=== PATIENT | female | born 1950 | race Caucasian/White ===

== ENCOUNTER → 2016-10-07 | Outpatient (REF) | payer OTHER ==
[~2016-10-07] MED LIST: ACET500C PO; ALBU17IN INH; AMLO25TA PO; ATOR1TAB19 PO; DRAM25TA3 PO; FURO1TAB15 PO; KLOR1TAB69 PO; LISI-542 PO; MELO7.5S PO; METF1000 PO; METO-207 PO; NEUR300C PO; OMEP40CA2 PO
== END ==
LOC: M LAB REF 12:44
PROVIDERS: ATTEND Internal Medicine
DX: N39.0 Urinary tract infection, site not specified (principal); J06.9 Acute upper respiratory infection, unspecified

== ENCOUNTER → 2018-05-03 | Outpatient (REF) | payer MEDICARE ==
[2018-05-04 11:21] LABS: CARCINOEMBRYONIC ANTIGEN 1.3 NG/ML (<2.5)
== END ==
LOC: M LAB REF 13:55
DX: C18.2 Malignant neoplasm of ascending colon (principal)
CPT/HCPCS: 82378

== ENCOUNTER 2018-08-12 11:31 | Emergency (ER) | payer MEDICARE ==
[~2018-08-12] VITALS: Ht 157.5 cm; Wt 107.3 kg
[~2018-08-12 11:31] MED LIST changes: -FURO1TAB15 PO; +FURO80TA2 PO; -METF1000 PO; +METF10004 PO; -METO-207 PO; +METO1TAB7 PO
[2018-08-12] MEDS ORDERED: LETR2.5T2 PO (11:51)
[2018-08-12 12:04] LABS: BASO % 0.3 % (0.0-1.0); EOS # 0.1 10^3/uL (0.0-0.50); EOS % 0.8 % (0.0-3.0); HEMATOCRIT 44.5 % (36.0-47.0); HEMOGLOBIN 13.9 g/dl (12.0-15.5); LYMPH # 0.9 10^3/uL (1.5-4.5); LYMPH % 12.5 % (24.0-44.0); MEAN CORPUSCULAR HEMOGLOBIN 28.2 pg (27.0-33.0); MEAN CORPUSCULAR HGB CONC 31.2 g/dl (32.0-36.5); MEAN CORPUSCULAR VOLUME 90.3 fl (80.0-96.0); MONO # 0.5 10^3/uL (0.0-0.8); MONO % 6.7 % (0.0-5.0); NEUTROPHILS # 5.6 10^3/uL (1.8-7.7); NEUTROPHILS % 79.1 % (36.0-66.0); PLATELET COUNT, AUTOMATED 188 10^3/uL (150-450); RED BLOOD COUNT 4.93 10^6/uL (4.00-5.40); WHITE BLOOD COUNT 7.1 10^3/uL (4.0-10.0)
[2018-08-12 12:26] LABS: ALBUMIN 3.6 GM/DL (3.2-5.2); ALT/SGPT 31 U/L (12-78); BILIRUBIN,DIRECT 0.3 MG/DL (0.0-0.2); BILIRUBIN,TOTAL 0.9 MG/DL (0.2-1.0); BLOOD UREA NITROGEN 9 MG/DL (7-18); CALCIUM LEVEL 9.6 MG/DL (8.8-10.2); CARBON DIOXIDE LEVEL 31 MEQ/L (21-32); CHLORIDE LEVEL 103 MEQ/L (98-107); GLOMERULAR FILTRATION RATE > 60.0 (>45); GLUCOSE, FASTING 131 MG/DL (70-100); LIPASE 103 U/L (73-393); POTASSIUM SERUM 3.5 MEQ/L (3.5-5.1); SODIUM LEVEL 142 MEQ/L (136-145); TOTAL PROTEIN 8.6 GM/DL (6.4-8.2)
[2018-08-12] MEDS ORDERED: ISOVUE-370 76% 100ML VIAL (Q9967) As Ordered ONE (12:35)
[2018-08-12] MEDS ORDERED: MORPHINE 2 MG/ML 1ML SYRINGE (J2270) IV PRN (12:45)
--- NOTE | 2018-08-12 13:08 | REP ---
Clinical: Acute chest pain and hypoxia. Technique: Axial contrast enhanced images from the thoracic inlet to the upper abdomen using 100 ml Isovue 370 intravenous contrast material with coronal and sagittal re-formations. Findings: Satisfactory enhancement of the pulmonary vasculature is achieved and no filling defects are identified to suggest pulmonary embolus. Lung torres demonstrate chronic COPD/emphysematous changes with scattered scarring. Trace left basilar atelectasis noted. No consolidation, effusion, or pneumothorax. Tracheobronchial tree is patent. Atherosclerotic changes to the thoracic aorta and coronary arteries noted without aortic aneurysm or dissection. No cardiomegaly or pericardial effusion. Musculoskeletal structures are intact. Evidence of prior left mastectomy and mammoplasty. Impression: No evidence for pulmonary embolus. COPD and emphysematous changes with minimal scattered scarring. Minimal left basilar atelectasis. Electronically Signed by Romie Medellin MD 08/12/2018 01:00 P
--- NOTE | 2018-08-12 13:16 | REP ---
Clinical: Hypoxia. Abdominal pain. Technique: Axial contrast enhanced images from the lung bases to the pubic symphysis using 100 ml Isovue 370 intravenous contrast material with coronal and sagittal re-formations. Comparison: 05/10/2017. Findings: Fatty infiltration to the liver noted along with a small 1 cm hypodense focus in the medial left lobe which cannot be further characterized. Spleen, pancreas, gallbladder, bilateral adrenal glands and kidneys appear normal. Evaluation of the enteric system demonstrates no obstruction or acute inflammatory process. The patient appears to be status post partial colectomy anastomosis identified in the right infrahepatic space. Adjacent to the area of anastomosis is a 3.9 x 4.7 x 5.0 cm soft tissue lesion concerning for an area of recurrence (images [id number]). Scattered colonic diverticula noted without acute diverticulitis. Pelvis demonstrates normal bladder and evidence for prior hysterectomy. No pelvic fluid or ascites. No significant adenopathy. Abdominal aorta without aneurysm or dissection. Musculoskeletal structures demonstrate age-related degenerative changes without focal osseous abnormality. Impression: 1. A 5 cm enhancing soft tissue lesion adjacent to the area of prior colonic anastomosis concerning for recurrence. 2. Fatty infiltration to the liver with small 1 cm hypodense lesion of uncertain clinical significance which cannot be further characterized. 3. Scattered diverticulosis without acute diverticulitis. 4. No ascites, obvious adenopathy, or free air. Electronically Signed by Romie Medellin MD 08/12/2018 01:08 P
[2018-08-12] MEDS ORDERED: KETOROLAC 30 MG/ML VIAL (J1885) IV ONE (14:00)
[2018-08-12] MEDS ORDERED: HYDROMORPHONE HCL 0.5 MG/ 0.5 ML SYRINGE (J1170 PER 1) IV PRN (14:00)
[2018-08-12] MEDS ORDERED: PERCOCET 5MG/325MG TAB PO ONE (15:15)
[2018-08-12] MEDS ORDERED: OXYC1TAB23 PO (15:49)
[2018-08-12] MEDS ORDERED: ONDA4TAB6 PO (15:49)
[2018-08-12 16:03] VITALS: BP 114/56
--- NOTE | 2018-08-13 07:36 | ED PDOC ---
Post-Departure Follow-Up domingo rashid faxed formal report of ct abd/p for fu Brandt Simpson MD Aug 13, 2018 07:36
--- NOTE | 2018-08-13 08:02 | ECGEPIP ---
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
[2018-08-21] MEDS ORDERED: POTA10TA16 PO (14:20)
[2018-08-21] MEDS ORDERED: VENTAER INH (14:20)
== END 2018-08-12 16:09 | disposition home or self-care (01) ==
LOC: M ED 11:31
DX: R19.07 Generalized intra-abdominal and pelvic swelling, mass and lump (principal); E11.9 Type 2 diabetes mellitus without complications; I10 Essential (primary) hypertension; Z85.3 Personal history of malignant neoplasm of breast; Z85.038 Personal history of other malignant neoplasm of large intestine; Z87.891 Personal history of nicotine dependence; K76.0 Fatty (change of) liver, not elsewhere classified; K57.30 Diverticulosis of large intestine without perforation or abscess without bleeding; R91.8 Other nonspecific abnormal finding of lung field; Z79.899 Other long term (current) drug therapy; Z79.84 Long term (current) use of oral hypoglycemic drugs
CPT/HCPCS: 71275; 74177; 80048; 80076; 83690; 85025; 93005; 96374; 96375; 99284; J1170; J1885; J2270; Q9967

== ENCOUNTER 2018-08-25 20:38 | Emergency (ER) | payer MEDICARE ==
[~2018-08-25] VITALS: Ht 157.5 cm; Wt 100.0 kg
[~2018-08-25 20:38] MED LIST changes: +LETR2.5T2 PO; +ONDA4TAB6 PO; +OXYC1TAB23 PO; +POTA10TA16 PO; +VENTAER INH
[2018-08-25] MEDS ORDERED: CALC-210 PO (21:06)
[2018-08-25] MEDS ORDERED: ASPI1TAB PO (21:06)
[2018-08-25] MEDS ORDERED: ACET650S3 PR (21:06)
[2018-08-25] MEDS ORDERED: FEXO180T58 PO (21:06)
[2018-08-25] MEDS ORDERED: MONT10TA2 PO (21:06)
[2018-08-25] MEDS ORDERED: IBUP200C25 PO (21:06)
[2018-08-25] MEDS ORDERED: FERR32TA PO (21:06)
[2018-08-25 22:28] LABS: BASO % 0.1 % (0.0-1.0); EOS % 0.1 % (0.0-3.0); HEMOGLOBIN 12.2 g/dl (12.0-15.5); LYMPH # 0.3 10^3/uL (1.5-4.5); LYMPH % 2.9 % (24.0-44.0); MEAN CORPUSCULAR HEMOGLOBIN 27.4 pg (27.0-33.0); MEAN CORPUSCULAR HGB CONC 31.3 g/dl (32.0-36.5); MEAN CORPUSCULAR VOLUME 87.4 fl (80.0-96.0); MONO # 0.2 10^3/uL (0.0-0.8); MONO % 1.8 % (0.0-5.0); NEUTROPHILS # 8.6 10^3/uL (1.8-7.7); NEUTROPHILS % 94.2 % (36.0-66.0); PLATELET COUNT, AUTOMATED 249 10^3/uL (150-450); RED BLOOD COUNT 4.46 10^6/uL (4.00-5.40); WHITE BLOOD COUNT 9.1 10^3/uL (4.0-10.0)
[2018-08-25] MEDS ORDERED: NS 1,000 ML IV ONE (22:30)
[2018-08-25] MEDS ORDERED: ONDANSETRON 4MG/2ML VIAL (J2405) IV ONE (22:30)
[2018-08-25 22:32] LABS: INR 1.19; PROTHROMBIN TIME 15.3 SECONDS (12.1-14.4)
[2018-08-25 22:33] LABS: PARTIAL THROMBOPLASTIN TIME 35.3 SECONDS (25.4-37.6)
[2018-08-25 22:39] LABS: ALBUMIN 2.4 GM/DL (3.2-5.2); ALT/SGPT 32 U/L (12-78); BILIRUBIN,DIRECT 0.3 MG/DL (0.0-0.2); BILIRUBIN,TOTAL 0.6 MG/DL (0.2-1.0); BLOOD UREA NITROGEN 10 MG/DL (7-18); CALCIUM LEVEL 8.5 MG/DL (8.8-10.2); CARBON DIOXIDE LEVEL 32 MEQ/L (21-32); CHLORIDE LEVEL 98 MEQ/L (98-107); CREATININE FOR GFR 0.51 MG/DL (0.55-1.30); GLOMERULAR FILTRATION RATE > 60.0 (>45); GLUCOSE, FASTING 164 MG/DL (70-100); LIPASE 75 U/L (73-393); POTASSIUM SERUM 2.7 MEQ/L (3.5-5.1); SODIUM LEVEL 139 MEQ/L (136-145); TOTAL PROTEIN 6.8 GM/DL (6.4-8.2)
[2018-08-25] MEDS: MORPHINE 4 MG/ML 1ML VIAL/SYRINGE (J2270) IV PRN (22:57)
--- NOTE | 2018-08-26 00:13 | REPVR ---
EXAM: CT Abdomen and Pelvis Without Contrast EXAM DATE/TIME: 08/25/2018 10:22 PM CLINICAL HISTORY: 68 years old, female; Pain; Abdominal pain; Flank; Right; Additional info: Right flank pain, inability to urinate TECHNIQUE: Axial computed tomography images of the abdomen and pelvis without contrast. All CT scans at this facility use at least one of these dose optimization techniques: automated exposure control; mA and/or kV adjustment per patient size (includes targeted exams where dose is matched to clinical indication); or iterative reconstruction. Coronal and sagittal reformatted images were created and reviewed. COMPARISON: CT ABD/PEL W/IV CONTRAST ONLY 08/12/2018 12:35 PM FINDINGS: Lower thorax: Clear lung bases. The heart is normal in size. ABDOMEN: Pancreas: Normal appearing pancreas. Spleen: Mild prominence of the spleen. Adrenals: Normal appearing adrenal glands. Kidneys and ureters: There is strandy density along the margin of the right kidney which may be secondary to obstruction and or pyelonephritis. There is mild hydronephrosis right collecting system. There is dilatation of the right ureter and this has all developed since the previous exam. Prominent strandy density consistent with inflammation along the right ureter. There could be obstruction by nonopaque debris, a nonopaque stone or recent passage of the stone with associated swelling. Stomach and bowel: Surgical clips are noted in the right abdomen there are multiple diverticula of the colon but no evidence of diverticulitis. I suspect there has been removal of a portion of the right colon. There is lobulated density associated with the bowel and surgical clips near the gallbladder. This may be non-opacified bowel or a solid nodular area and oral contrast would be helpful to differentiate. PELVIS: Bladder: Normal appearing urinary bladder. Reproductive: Post hysterectomy. ABDOMEN and PELVIS: Intraperitoneal space: There is no evidence of pneumoperitoneum. Bones/joints: There is moderate scoliosis of the lumbar spine convexity to the left. Soft tissues: There is swelling and subcutaneous edema at the skin surface of the lower panniculus. Since the previous examination there has been development of a 6 CM soft tissue thickening anterior abdominal wall and contiguous with the liver edge. This may represent a focal area of infection or abscess. A CT scan with IV and oral contrast would be helpful for further evaluation of this. Ultrasound might also be considered to determine if this is an abscess. There is subcutaneous soft tissue swelling through this area and skin thickening that may be cellulitis of the inferior panniculus. This is all new since the examination of 08/12/2018. Vasculature: There is calcification of the aorta consistent with atherosclerotic change. IMPRESSION: 1. 6 cm area of thickening of the anterior abdominal wall abutting the right lobe of the liver. This is new since 08/12/2018 and suspicious for abscess development. This may be extending into the liver parenchyma. In addition there is subcutaneous edema. A CT scan with IV and oral contrast or focal ultrasound may better define an abscess. There is severe thickening of the skin of the lower panniculus all new and consistent with changes of cellulitis. 2. Development of swelling of the right kidney with stranding density along the margins consistent with obstruction and pyelonephritis. Interval development of mild right hydronephrosis. Moderate dilatation of the right ureter possibly secondary to obstruction by nonopaque debris or nonopaque stone. Recent passage of a stone possible as well. Inflammation along the course of the right ureter. 3. Near the Gallbladder are loops of bowel and also the surgical clips. There is a 3 CM lobular density which could be non-opacified bowel or a solid mass or area of infected lymph nodes. Recommend oral contrast to determine if this is bowel versus solid structure within the mesentery.Findings were discussed with JING GUEVARA at 08/26/2018 12:13 AM EST. Electronically signed by: Louie Vo On 08/26/2018 00:13:20 AM
[2018-08-26] MEDS: GASTROGRAFIN SOLUTION 30ML PO SCH ×2 (01:17→02:00)
[2018-08-26] MEDS: MORPHINE 4 MG/ML 1ML VIAL/SYRINGE (J2270) IV PRN (01:26)
[2018-08-26] MEDS ORDERED: POTASSIUM CHLORIDE 10 MEQ SR TABLET PO ONE (02:45)
[2018-08-26] MEDS ORDERED: ISOVUE-370 76% 100ML VIAL (Q9967) As Ordered ONE (02:50)
[2018-08-26 03:03] LABS: MAGNESIUM LEVEL 1.6 MG/DL (1.8-2.4)
[2018-08-26] MEDS ORDERED: MORPHINE 4 MG/ML 1ML VIAL/SYRINGE (J2270) IV PRN (03:30)
[2018-08-26] MEDS ORDERED: MAGNESIUM OXIDE 400 MG TAB (MAG-OX) PO ONE (04:00)
--- NOTE | 2018-08-26 04:45 | REPVR ---
EXAM: CT Abdomen and Pelvis With Contrast EXAM DATE/TIME: 08/26/2018 3:20 AM CLINICAL HISTORY: 68 years old, female; Pain; Abdominal pain; Generalized; Additional info: Abd pain, rads request TECHNIQUE: Axial computed tomography images of the abdomen and pelvis with intravenous contrast. All CT scans at this facility use at least one of these dose optimization techniques: automated exposure control; mA and/or kV adjustment per patient size (includes targeted exams where dose is matched to clinical indication); or iterative reconstruction. Coronal and sagittal reformatted images were created and reviewed. CONTRAST: 100 ml of ISOVUE 370 administered intravenously. COMPARISON: CT ABD/PEL W/IV CONTRAST ONLY 08/12/2018 12:[address] ABD PELVIS W/O CONTRAST 08/25/2018 10:16:19 PM FINDINGS: Lower thorax: A left breast implant is partially visualized. ABDOMEN: Liver: There is a diffuse decrease in hepatic parenchymal density, consistent with fatty infiltration. There is a poorly defined, heterogeneous density mass in the anterior right upper quadrant, which involves the right anterior abdominal wall and the liver. It measures 5.9 x 6.8 x 5.7 cm. There is stranding around the site anterior to the liver. On the prior exam of August 12 2018, there was only a small area of low attenuation in this region which measured 1.0 cm in diameter. Gallbladder and bile ducts: There is mild stranding around the fundus of the gallbladder but the gallbladder does not appear to be at the center of this process. The gallbladder wall is not significantly thickened. There is no biliary ductal dilation. Pancreas: The pancreas is normal with no ductal dilation. Spleen: The spleen is normal. Adrenals: The adrenal glands are normal. Kidneys and ureters: The kidneys are normal. There are no ureteral stones or hydronephrosis. There is mild nonspecific perinephric stranding, right more than left. Stomach and bowel: The small bowel appears unremarkable. Mild diverticulosis is present in the distal colon. There is evidence of a partial colon resection, probably a right hemicolectomy, with a suture line at the right upper quadrant. An irregularly-shaped, slightly heterogeneous density soft tissue mass is seen adjacent to the suture line measuring 3.4 x 5.5 cm, also seen previously, which is highly suspicious for local recurrence of tumor. Appendix:There has been an appendectomy. PELVIS: Bladder: The bladder is unremarkable. No stones identified. Reproductive: The uterus is absent. ABDOMEN and PELVIS: Intraperitoneal space: There is no evidence of free intraperitoneal or pelvic fluid. There is no free intraperitoneal air. Bones/joints: Degenerative endplate changes are seen at multiple levels in the visualized spine. No suspicious osseous lesions. No acute fractures or dislocations. Soft tissues: There is skin thickening and stranding in the pannus in the right lower abdominal wall as seen on the exam from 08/25/2018 but new compared to 08/12/2018. See Liver findings. Vasculature: The aorta demonstrates mild atherosclerotic calcification. Lymph nodes: No lymphadenopathy is seen. IMPRESSION: 1. Heterogeneously enhancing mass involving the liver and the right anterior abdominal wall, where only a very small focus of low attenuation was present recently, most likely representing an abscess. 2. Skin thickening and infiltration of subcutaneous fat in the lower anterior abdominal wall, consistent with cellulitis. 3. Soft tissue mass adjacent to the anastomosis of the colon, probably representing neoplasm. Electronically signed by: Vicky Cunningham On 08/26/2018 04:44:47 AM
[2018-08-26] MEDS ORDERED: PIPERACILLIN/TAZOBACTAM SOD 3.375 GM in D5W MINI-BAG PLUS 50 ML IV ONE (05:15)
[2018-08-26 08:48] VITALS: BP 120/56
--- NOTE | 2018-08-26 16:40 | ECGEPIP ---
Stationary ECG Study 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
== END 2018-08-26 08:48 | disposition short-term general hospital (02) ==
LOC: EDBD 20:38 → M ED 20:38
DX: K65.1 Peritoneal abscess (principal); R19.00 Intra-abdominal and pelvic swelling, mass and lump, unspecified site; I25.10 Atherosclerotic heart disease of native coronary artery without angina pectoris; I10 Essential (primary) hypertension; J45.909 Unspecified asthma, uncomplicated; Z85.038 Personal history of other malignant neoplasm of large intestine; Z85.3 Personal history of malignant neoplasm of breast; Z79.82 Long term (current) use of aspirin; Z79.899 Other long term (current) drug therapy
CPT/HCPCS: 74176; 74177; 80048; 80076; 81001; 83605; 83690; 83735; 85025; 85610; 85730; 87040; 87088; 87186; 93005; 93041; 96374; 96375; 96376; 99285; J2270; J2405; J2543; Q9963; Q9967

== ENCOUNTER → 2018-09-13 | Outpatient (REF) | payer MEDICARE ==
[~2018-09-13] MED LIST changes: +ACET650S3 PR; +ASPI1TAB PO; +CALC-210 PO; +FERR32TA PO; +FEXO180T58 PO; +IBUP200C25 PO; +MONT10TA2 PO
== END ==
LOC: M LAB REF 12:50
PROVIDERS: ATTEND Internal Medicine
DX: L02.211 Cutaneous abscess of abdominal wall (principal)

== ENCOUNTER → 2018-09-17 | Outpatient (REF) | payer MEDICARE | LOC: M LAB REF 13:33 | PROVIDERS: ATTEND Internal Medicine | DX: Z85.038 Personal history of other malignant neoplasm of large intestine (principal) ==

== ENCOUNTER → 2018-10-08 | Outpatient (REF) | payer MEDICARE | LOC: M LAB REF 16:41 | PROVIDERS: ATTEND Internal Medicine | DX: R10.9 Unspecified abdominal pain (principal) ==

== ENCOUNTER → 2019-06-13 | Outpatient (REF) | payer MEDICARE ==
[~2019-06-13] MED LIST changes: -ASPI1TAB PO; +ASPI81TA26 PO; -CALC-210 PO; +CALC-239 PO; -OMEP40CA2 PO; +OMEP40CA97 PO
== END ==
LOC: M LAB REF 13:34
PROVIDERS: ATTEND Internal Medicine
DX: D52.8 Other folate deficiency anemias (principal)

== ENCOUNTER → 2020-03-11 | Outpatient (CLI) | payer MEDICARE ==
[~2020-03-11] MED LIST changes: -MONT10TA2 PO; +MONT10TA4 PO
[2020-03-11 19:08] LABS: BASO % 0.4 % (0.0-1.0); EOS # 0.1 10^3/uL (0.0-0.5); EOS % 2.9 % (0.0-3.0); HEMATOCRIT 39.9 % (36.0-47.0); LYMPH # 1.1 10^3/uL (1.5-5.0); LYMPH % 22.6 % (24.0-44.0); MEAN CORPUSCULAR HEMOGLOBIN 26.9 pg (27.0-33.0); MEAN CORPUSCULAR HGB CONC 30.1 g/dl (32.0-36.5); MEAN CORPUSCULAR VOLUME 89.5 fl (80.0-96.0); MONO # 0.4 10^3/uL (0.0-0.8); MONO % 7.5 % (0.0-5.0); NEUTROPHILS # 3.2 10^3/uL (1.5-8.5); NEUTROPHILS % 66.2 % (36.0-66.0); PLATELET COUNT, AUTOMATED 157 10^3/uL (150-450); RED BLOOD COUNT 4.46 10^6/uL (4.00-5.40); WHITE BLOOD COUNT 4.8 10^3/uL (4.0-10.0)
[2020-03-11 19:31] LABS: ALBUMIN 3.3 GM/DL (3.2-5.2); ALT/SGPT 35 U/L (12-78); BILIRUBIN,TOTAL 0.5 MG/DL (0.2-1.0); BLOOD UREA NITROGEN 17 MG/DL (7-18); CALCIUM LEVEL 9.3 MG/DL (8.8-10.2); CARBON DIOXIDE LEVEL 31 MEQ/L (21-32); CHLORIDE LEVEL 106 MEQ/L (98-107); CREATININE FOR GFR 0.74 MG/DL (0.55-1.30); GLOMERULAR FILTRATION RATE > 60.0 (>45); GLUCOSE, FASTING 172 MG/DL (70-100); SODIUM LEVEL 144 MEQ/L (136-145); TOTAL PROTEIN 7.3 GM/DL (6.4-8.2)
== END ==
LOC: M WUC 17:00
PROVIDERS: ATTEND Internal Medicine Hematology & Oncology
DX: C18.2 Malignant neoplasm of ascending colon (principal)

== ENCOUNTER → 2020-04-21 | Outpatient (CLI) | payer MEDICARE ==
--- NOTE | 2020-04-27 11:54 | REP ---
DATE: 04/21/2020 TIME: 03:[address]: HISTORY: Staging colon cancer. COMPARISON: CT study chest, abdomen and pelvis is from February 25, 2020. No comparison PET CT. TECHNIQUE: 52 minutes following the intravenous injection of an 8.30 millicurie dose of F-18 FDG, 3-dimension PET CT imaging is acquired from the skull base to the proximal thighs. PET CT FINDINGS: Head and neck soft tissues are unremarkable. There is no abnormal hypermetabolic uptake within the thorax. No axillary or supraclavicular hypermetabolic louise uptake is seen. A left breast augmentation prosthesis is noted. No abnormal adrenal uptake is seen. In the abdomen and pelvis, there is abnormal hypermetabolic uptake in the recently identified mass in the inferior aspect of the right lobe of the liver. This has enlarged since the February 25, 2020 study and now measures 7.2 cm in right to left dimension, previously 4.6 cm. Maximum standard uptake value within this right lobe inferior hepatic mass lesion is 13.82. There are louise foci of hypermetabolic uptake. The largest is adjacent to the gastric antrum and pyloric region where maximum standard uptake value is 14.4. There is a tiny sub cm celiac axis lymph node with maximum standard uptake value 2.44. There is a soft tissue small 1.5 cm soft tissue nodule just anterior to the iliac crest on the right, which is hypermetabolic; maximum standard uptake value is 7.24. This is consistent with a soft tissue metastasis. There is a focus to the left of the rectosigmoid colon in the central pelvis where maximum standard uptake value is hypermetabolic, 12.75. This soft tissue focus measures 3.2 cm. Lastly, there is a louise hypermetabolic focus in an 18 mm left inguinal lymph node. Maximum standard uptake value within this is 12.11. No other abnormal hypermetabolic uptake is seen. IMPRESSION: Metastatic uptake involving the inferior aspect of the liver, celiac axis and upper abdominal lymph nodes, left inguinal lymph node and a soft tissue focus along the anterior margin of the iliac crest on the right. MTDD
== END ==
LOC: M PLARAD 13:25
PROVIDERS: ATTEND Internal Medicine Hematology & Oncology
DX: C78.7 Secondary malignant neoplasm of liver and intrahepatic bile duct (principal); C18.2 Malignant neoplasm of ascending colon
CPT/HCPCS: 78815; A9552

== ENCOUNTER → 2020-05-01 | Outpatient (CLI) | payer MEDICARE | LOC: M LABSMTC 13:28 | PROVIDERS: ATTEND Surgery | DX: Z01.812 Encounter for preprocedural laboratory examination (principal); Z20.828 Contact with and (suspected) exposure to other viral communicable diseases | CPT/HCPCS: C9803; U0003 ==

== ENCOUNTER → 2020-06-10 | Outpatient (REF) | payer MEDICARE ==
[~2020-06-10] MED LIST changes: -MONT10TA4 PO; +MONT5TAB2 PO
== END ==
LOC: M LAB REF 16:23
PROVIDERS: ATTEND Internal Medicine
DX: C18.2 Malignant neoplasm of ascending colon (principal); C78.7 Secondary malignant neoplasm of liver and intrahepatic bile duct

== ENCOUNTER → 2020-06-15 | Outpatient (CLI) | payer SELFPAY | LOC: M LABSMTC 15:18 | PROVIDERS: ATTEND Pediatrics | DX: Z20.828 Contact with and (suspected) exposure to other viral communicable diseases (principal) ==

== ENCOUNTER → 2020-07-11 | Outpatient (CLI) | payer MEDICARE ==
[~2020-07-11] MED LIST changes: +XELODA PO
== END ==
LOC: M LABSMTC 08:34
PROVIDERS: ATTEND Anesthesiology
DX: Z01.812 Encounter for preprocedural laboratory examination (principal); Z20.828 Contact with and (suspected) exposure to other viral communicable diseases

== ENCOUNTER 2020-07-15 12:17 | Day surgery (SDC) | payer MEDICARE ==
[~2020-07-15] VITALS: Ht 157.5 cm; Wt 94.3 kg
[~2020-07-15 12:17] MED LIST changes: +NS 1,000 ML IV ONE
[2020-07-15] MEDS ORDERED: LIDOCAINE 2% 100MG/5ML SDV (FOR ANES.) As Ordered ONE (13:37)
[2020-07-15] MEDS ORDERED: propofoL 200 MG/20 ML VIAL As Ordered ONE (13:37)
[2020-07-15] MEDS ORDERED: fentaNYL 100 MCG/2 ML INJECTION (J3010) As Ordered ONE (13:39)
--- NOTE | 2020-07-15 14:21 | ROOR ---
Patient Name: Love Chaves Procedure Date: 07/15/2020 2:01 PM Date of : 1950 Age: 69 Room: [facility] Gender: Female Note Status: Finalized Procedure: Upper Endoscopy + Biopsies Indications: Abnormal PET scan of the GI tract Providers: Antonio Andersen MD Referring MD: Elza Medrano DO Requesting Provider: Medicines: Monitored Anesthesia Care Complications: No immediate complications. Procedure: Pre-Anesthesia Assessment: - The heart rate, respiratory rate, oxygen saturations, blood pressure, adequacy of pulmonary ventilation, and response to care were monitored throughout the procedure. The Endoscope was introduced through the mouth, and advanced to the second part of duodenum. The upper GI endoscopy was accomplished without difficulty. The patient tolerated the procedure well. Findings: The Z-line was irregular and was found 40 cm from the incisors. Multiple biopsies were obtained with cold forceps for evaluation to rule out Rebolledo's Esophagus randomly at the gastroesophageal junction. A small hiatal hernia was present. No other significant abnormalities were identified in a careful examination of the stomach. Biopsies were taken with a cold forceps in the gastric antrum for Helicobacter pylori testing. The exam of the duodenum was otherwise normal. Impression: - Z-line irregular, 40 cm from the incisors. - Small hiatal hernia. - Multiple biopsies were obtained at the gastroesophageal junction. - Biopsies were taken with a cold forceps for Helicobacter pylori testing. - The examination was otherwise normal. Recommendation: - Patient has a contact number available for emergencies. The signs and symptoms of potential delayed complications were discussed with the patient. Return to normal activities tomorrow. Written discharge instructions were provided to the patient. - High fiber diet. - Discharge patient to home. - Continue present medications. - Await pathology results. - Telephone GI clinic for pathology results in 1 week. - Return to referring physician. - The findings and recommendations were discussed with the patient. Procedure Code(s): --- Professional --- 02532, Esophagogastroduodenoscopy, flexible, transoral; with biopsy, single or multiple Diagnosis Code(s): --- Professional --- K22.8, Other specified diseases of esophagus K44.9, Diaphragmatic hernia without obstruction or gangrene R93.3, Abnormal findings on diagnostic imaging of other parts of digestive tract CPT copyright 2019 [employer]. All rights reserved. The codes documented in this report are preliminary and upon braille coder review may be revised to meet current compliance requirements. Antonio Andersen MD Antonio Adnersen MD 07/15/2020 2:21:22 PM Electronically signed by Antonio Andersen MD Number of Addenda: 0 Note Initiated On: 07/15/2020 2:01 PM Estimated Blood Loss: Estimated blood loss: none.
[2020-07-15 14:45] VITALS: BP 171/74
== END 2020-07-15 15:00 | disposition home or self-care (01) ==
LOC: M OPP 12:17
PROVIDERS: ATTEND Internal Medicine Gastroenterology
DX: R93.3 Abnormal findings on diagnostic imaging of other parts of digestive tract (principal); D13.1 Benign neoplasm of stomach; K22.8 Other specified diseases of esophagus; K44.9 Diaphragmatic hernia without obstruction or gangrene; I10 Essential (primary) hypertension; E78.5 Hyperlipidemia, unspecified; E11.9 Type 2 diabetes mellitus without complications; D50.9 Iron deficiency anemia, unspecified; M19.90 Unspecified osteoarthritis, unspecified site; F41.9 Anxiety disorder, unspecified; F32.9 Major depressive disorder, single episode, unspecified; J44.9 Chronic obstructive pulmonary disease, unspecified; Z85.3 Personal history of malignant neoplasm of breast; Z92.21 Personal history of antineoplastic chemotherapy; Z79.82 Long term (current) use of aspirin; Z79.84 Long term (current) use of oral hypoglycemic drugs; Z79.899 Other long term (current) drug therapy
CPT/HCPCS: 43239; 88305; J3010